=== PATIENT | female | born 1995 | race Hispanic/Latino ===

== ENCOUNTER → 2020-03-19 | Emergency (ER) | payer OTHER ==
[~2020-03-19] VITALS: Ht 152.4 cm; Wt 59.0 kg
[~2020-03-19] MED LIST: DIFLUNISAL500 MG PO
--- OUTSIDE RECORDS SUMMARY | 2020-03-19 10:16 | XMS REPORT | Clinical Summary ---
Author Author Page [facility] Organization [place] [facility] Address Unknown Phone Unavailable Care Team Providers Care Workforce Advisor Name Role Phone Asked, No Pcp PCP Unavailable Allergies No Known Allergies Medications No known medications Active Problems Not on file Immunizations Name Administration Dates Next Due Tdap 05/08/2017 Social History Date Tobacco Use Types Packs/Day Years Used Current Every Day Smoker Drinks/Week oz/Week Comments Alcohol Use Yes Sex Assigned at Date Recorded Not on file Industry Job Start Date Occupation Not on file Not on file Not on file Travel End Travel History Travel Start No recent travel history available. 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
--- NOTE | 2020-03-20 10:47 | Emergency Department Note ---
History of Present Illnes History of Present Illness Chief Complaint: COVID PUI History of Present Illness This is a 25 year old female COVID S/S X 3 DAYS, cough, congestion, SOB, achy all over, diarrhea, chills. AAOX4. Historian: Patient Arrival Mode: Car Etcher Electrolytic Required: No Onset (how long ago): day(s) (3) Radiation: Reports non-radiation Severity: moderate Onset quality: gradual Progression: unchanged Chronicity: new Context: Denies recent illness Relieving factors: none Exacerbating factors: none Associated symptoms: Reports cough, Reports headaches, Reports shortness of breath Past Medical/Family History Physician Review I have reviewed the patient's past medical and family history. Any updates have been documented here. Past Medical History Recent Fever: No Clinical Suspicion of Infectio: No New/Unexplained Change in Ment: No Other Medical History: OVARIAN CYST CYST IN BREAST Social History Smoking Cessation: Never Smoker Counseling Performed: No Alcohol Use: None Any Illegal Drug Use: No TB Exposure/Symptoms: No Physically hurt or threatened: No Family History Family history of heart diseas: No Other Last Tetanus: UTD Any Pre-Existing Lines (PICC,: No Review of Systems Review of Systems Constitutional: Reports as per HPI EENTM: Reports no symptoms Cardiovascular: Reports no symptoms Respiratory: Reports as per HPI Gastrointestinal: Reports no symptoms Genitourinary: Reports no symptoms Musculoskeletal: Reports as per HPI Integumentary: Reports no symptoms Neurological: Reports no symptoms Psychological: Reports no symptoms Endocrine: Reports no symptoms Hematological/Lymphatic: Reports no symptoms Physical Exam Related Data Allergies: Coded Allergies: No Known Allergies (Unverified , 04/01/14) Triage Vital Signs Vital Signs Date Time Temp Pulse Resp B/P (MAP) Pulse Ox O2 Delivery O2 Flow Rate FiO2 03/19/20 09:50 99.0 86 16 125/74 100 Room Air Vital signs reviewed: Yes Physical Exam CONSTITUTIONAL Constitutional: Present well-developed, Present well-nourished HENT HENT: Present normocephalic, Present atraumatic, Present oropharynx clear/moist, Present nose normal HENT L/R: Present left ext ear normal, Present right ext ear normal EYES Eyes: Reports PERRL, Reports conjunctivae normal NECK Neck: Present ROM normal PULMONARY Pulmonary: Present effort normal, Present breath sounds normal CARDIOVASCULAR Cardiovascular: Present regular rhythm, Present heart sounds normal, Present capillary refill normal, Present normal rate GASTROINTESTINAL Abdominal: Present soft, Present nontender, Present bowel sounds normal GENITOURINARY Genitourinary: Present exam deferred SKIN Skin: Present warm, Present dry MUSCULOSKELETAL Musculoskeletal: Present ROM normal NEUROLOGICAL Neurological: Present alert, Present oriented x 3, Present no gross motor or sensory deficits PSYCHOLOGICAL Psychological: Present mood/affect normal, Present judgement normal Assessment & Plan Medical Decision Making MDM check covid swab Reassessment Reassessment dc home, O2 sat 100%, self-quarantine, proning, multiple handouts given on COVID, F/U PCP, RTED prn Assessment & Plan Final Impression: (1) Viral syndrome Depart Disposition: HOME, SELF-CARE Last Vital Signs Date Time Temp Pulse Resp B/P (MAP) Pulse Ox O2 Delivery O2 Flow Rate FiO2 03/19/20 09:50 99.0 86 16 125/74 100 Room Air Home Meds Active Scripts Diflunisal (DOLOBID) 500 Mg Tablet, 500 MG PO BID, #14 Prov:YOANA LOWERY MD 04/02/14 ELVIN ESPINAL MD Mar 20, 2020 10:47
== END | disposition home or self-care (01) ==
LOC: ER 09:57
DX: B34.9 Viral infection, unspecified (principal); R50.9 Fever, unspecified; R05 Cough; Z11.59 Encounter for screening for other viral diseases
CPT/HCPCS: 99283; U0002

== ENCOUNTER 2020-03-20 11:16 | Emergency (ER) | payer OTHER ==
[~2020-03-20] VITALS: Ht 152.4 cm; Wt 59.0 kg
--- OUTSIDE RECORDS SUMMARY | 2020-03-20 11:33 | XMS REPORT | Clinical Summary ---
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
--- NOTE | 2020-03-20 13:38 | Diagnostic Imaging Report ---
X-ray chest AP portable Comparison: None History: Chest tightness, cough, shortness of breath Findings: Central airways unremarkable. Heart size normal. Mediastinal silhouettes unremarkable. No pleural effusion. No pneumothorax. No focal lung disease. Visualized skeletal structures and upper abdomen unremarkable. Impression: No acute cardiopulmonary disease. Signed by: Donaldo Greene MD on 03/20/2020 1:34 PM
--- NOTE | 2020-03-20 13:48 | Emergency Department Note ---
History of Present Illnes History of Present Illness Chief Complaint: COVID PUI History of Present Illness This is a 25 year old female states she was here yesterday for covid symptoms...weakness, difficulty breathing, n/v; pt was covid swabbed yesterday results pending given covid handouts states she still feels like she can't breathe during triage pt o2 sat 100% hx of asthma. Historian: Patient Arrival Mode: Car Traffic Line Painter Required: No Onset (how long ago): day(s) (3) Radiation: Reports non-radiation Severity: moderate Onset quality: gradual Timing of current episode: intermittent Chronicity: new Context: Denies recent illness Relieving factors: none Exacerbating factors: none Associated symptoms: Reports denies other symptoms Past Medical/Family History Physician Review I have reviewed the patient's past medical and family history. Any updates have been documented here. Past Medical History Recent Fever: No Clinical Suspicion of Infectio: Yes New/Unexplained Change in Ment: No Past Medical History: Asthma Other Medical History: OVARIAN CYST CYST IN BREAST Other Surgery: cyst in left breast removed Social History Smoking Cessation: Never Smoker Counseling Performed: No Alcohol Use: Social TB Exposure/Symptoms: No Physically hurt or threatened: No Family History Family history of heart diseas: No Other Last Tetanus: UTD Review of Systems Review of Systems Constitutional: Reports as per HPI EENTM: Reports no symptoms Cardiovascular: Reports as per HPI Respiratory: Reports as per HPI Gastrointestinal: Reports as per HPI Genitourinary: Reports no symptoms Musculoskeletal: Reports no symptoms Integumentary: Reports no symptoms Neurological: Reports no symptoms Psychological: Reports no symptoms Endocrine: Reports no symptoms Hematological/Lymphatic: Reports no symptoms Physical Exam Related Data Allergies: Coded Allergies: No Known Allergies (Unverified , 04/01/14) Triage Vital Signs Vital Signs Date Time Temp Pulse Resp B/P (MAP) Pulse Ox O2 Delivery O2 Flow Rate FiO2 03/20/20 12:00 98.9 89 18 124/73 100 Room Air Physical Exam CONSTITUTIONAL Constitutional: Present well-developed, Present well-nourished HENT HENT: Present normocephalic, Present atraumatic, Present oropharynx clear/moist, Present nose normal HENT L/R: Present left ext ear normal, Present right ext ear normal EYES Eyes: Reports PERRL, Reports conjunctivae normal NECK Neck: Present ROM normal PULMONARY Pulmonary: Present effort normal, Present breath sounds normal CARDIOVASCULAR Cardiovascular: Present regular rhythm, Present heart sounds normal, Present capillary refill normal, Present normal rate GASTROINTESTINAL Abdominal: Present soft, Present nontender, Present bowel sounds normal GENITOURINARY Genitourinary: Present exam deferred SKIN Skin: Present warm, Present dry MUSCULOSKELETAL Musculoskeletal: Present ROM normal NEUROLOGICAL Neurological: Present alert, Present oriented x 3, Present no gross motor or sensory deficits PSYCHOLOGICAL Psychological: Present mood/affect normal, Present judgement normal Results Imaging Imaging results reviewed: Yes Assessment & Plan Medical Decision Making MDM CXR R/O PNEUMONIA Reassessment Reassessment LIKELY COVID, SEEN YESTERDAY, REQUESTS A CXR TODAY Assessment & Plan Final Impression: (1) Viral syndrome Depart Disposition: HOME, SELF-CARE Last Vital Signs Date Time Temp Pulse Resp B/P (MAP) Pulse Ox O2 Delivery O2 Flow Rate FiO2 03/20/20 12:00 98.9 89 18 124/73 100 Room Air Home Meds Active Scripts Diflunisal (DOLOBID) 500 Mg Tablet, 500 MG PO BID, #14 Prov:YOANA LOWERY MD 04/02/14 ELVIN ESPINAL MD Mar 20, 2020 13:48
== END 2020-03-20 14:08 | disposition home or self-care (01) ==
LOC: ER 11:20
DX: B34.9 Viral infection, unspecified (principal); J45.909 Unspecified asthma, uncomplicated
CPT/HCPCS: 71045; 99282